=== PATIENT | female | born 1980 | race Caucasian/White ===

== ENCOUNTER 2020-11-10 09:10 | Emergency (ER) | payer BC ==
--- NOTE | 2020-11-10 09:12 | ED.PDOC ---
History of Present Illness - General Time Seen by Provider: 11/10/20 09:11 Source: patient - History of Present Illness Initial Comments: 40-year-old female with past medical history of depression, marijuana abuse who presents with chief complaint of abdominal pain and right-sided dental pain. Abdominal pain is located to the epigastric region, onset 2 days ago with gradual worsening, became at its worse early this morning and kept patient up all night, became severe several hours ago, describes as sharp without radiation, no known exacerbating factors, she has been taking ibuprofen and Tylenol with intermittent moderate relief. Currently reports pain is much better since coming to the ED. No history of similar symptoms in the past. Denies any history of abdominal surgeries. She does report that she smokes marijuana once daily. Hx of heartburn and takes Prilosec. She also complains of right-sided facial/dental pain. She underwent several dental procedures [address] Sanders. She reports she had 2 root canals and a bridge done on the right side. She had all of the work done at the same time the procedure took over 4 hours. She reports she has had constant discomfort and pain to the right upper and lower jaw, currently rates the pain 7/[address] Sanders is aware of her pain and has prescribed her clindamycin 300 mg 3 times daily which she is taking. She denies any facial swelling, warmth, redness, drainage. Denies any fevers, chills, sore throat, chest pain, dyspnea, cough, nausea/vomiting/diarrhea, urinary symptoms. 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 She has no PCP. Reports she has taken many medications for depression in the past but none worked so she quit taking all of them. Allergies/Adverse Reactions: Allergies NO KNOWN ALLERGY Allergy (Verified 11/10/20 09:41) Home Medications: Ambulatory Orders Tramadol HCl 50 mg PO Q6H PRN 5 Days #10 tab 11/10/20 Review of Systems - Review of Systems Review of Systems: 11/10/20 09:42 as per HPI All other Systems: Reviewed and Negative Family Medical History - Family History Mother Family History: No Known Physical Exam - Physical Exam General Appearance: Alert, Comfortable, No apparent distress Eye Exam: bilateral normal Ears, Nose, Throat: normal pharynx, other - Poor dentition, prior dental fillings noted to R mandibular and maxillary molars, no noted gumline redness/warmth/swelling/discharge or tenderness Neck: non-tender, full range of motion, supple, normal inspection Respiratory: lungs clear, normal breath sounds, no respiratory distress, no accessory muscle use Cardiovascular/Chest: normal peripheral pulses, regular rate, rhythm, no edema, no gallop, no JVD, no murmur Peripheral Pulses: radial,right: 2+, radial,left: 2+ Gastrointestinal/Abdominal: normal bowel sounds, non tender, soft, no organomegaly Back Exam: normal inspection, no CVA tenderness Extremity: normal range of motion, non-tender, normal inspection, no pedal edema, no calf tenderness, normal capillary refill 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 For jaw pain, suspect as likely postoperative inflammation/irritation, no evidence of infection or other complication - will treat with pain control in ED -Patient stable, no acute distress, reports abdominal pain is actually improved from earlier and has no tenderness on exam -Obtain acute abdominal work-up -Place PIV, IV fluids, GI cocktail, [place] 10, reassess 11/10/20 10:51 -Patient reports pain is markedly improved with ED treatment. She remained stable. Lab work is largely unremarkable. I did discuss that she has evidence of mild anemia and she may take [id number] iron supplements and discuss further with her PCP. Discussed all findings. I suspect that she likely has acute gastritis as cause of her abdominal discomfort. I advised that she quit smoking and using marijuana. Advised to continue her Prilosec and to increase her dosage from 20 to 40 mg once daily. Advised to follow-up closely with her PCP to establish care and also with her dentist for jaw pain. Will prescribe tramadol as needed for breakthrough pain until she can get back in with her dentist. -Discharged home in good condition, return warnings discussed Nito Carolina MD Billing #[id number] 11/10/20 09:37 Sodium Chloride 0.9% (Flush) [Saline Flush Syringe] 10 ml IV PRN PRN URINALYSIS Stat Laboratory Results - last 24 hr 11/10/20 11/10/20 11/10/20 09:45 09:45 09:45 WBC 7.2 RBC 3.82 L Hgb 11.1 L Hct 33.2 L MCV 86.9 MCH 29.2 MCHC 33.6 RDW 15.5 H Plt Count 486 H MPV 6.6 L Absolute Neuts (auto) 3.50 Absolute Lymphs (auto) 2.20 Absolute Monos (auto) 0.40 Absolute Eos (auto) 1.00 H Absolute Basos (auto) 0.00 Neutrophils % 48.3 Lymphocytes % 30.9 Monocytes % 6.2 Eosinophils % 14.2 H Basophils % 0.4 Sodium 137 Potassium 4.7 Chloride 104 Carbon Dioxide 26 Anion Gap 11.7 L BUN 9 Creatinine 0.61 BUN/Creatinine Ratio 14.8 Random Glucose 103 Serum Osmolality 272.8 L Lactic Acid 0.9 Calcium 8.5 Total Bilirubin 0.4 Direct Bilirubin < 0.1 Indirect Bilirubin 0.3 AST 16 ALT 18 Alkaline Phosphatase 88 Serum Total Protein 6.5 Albumin 3.4 Amylase 37 Lipase 25 Serum HCG, Qual 11/10/20 09:45 WBC RBC Hgb Hct MCV MCH MCHC RDW Plt Count MPV Absolute Neuts (auto) Absolute Lymphs (auto) Absolute Monos (auto) Absolute Eos (auto) Absolute Basos (auto) Neutrophils % Lymphocytes % Monocytes % Eosinophils % Basophils % Sodium Potassium Chloride Carbon Dioxide Anion Gap BUN Creatinine BUN/Creatinine Ratio Random Glucose Serum Osmolality Lactic Acid Calcium Total Bilirubin Direct Bilirubin Indirect Bilirubin AST ALT Alkaline Phosphatase Serum Total Protein Albumin Amylase Lipase Serum HCG, Qual Negative Departure - Departure Clinical Impression: Pain, dental Gastritis Qualifiers: Gastritis type: other gastritis Chronicity: acute Gastritis bleeding: without bleeding Qualified Code(s): K29.00 - Acute gastritis without bleeding Time of Disposition: 10:46 Disposition: Discharge to Home or Self Care Condition: Good Instructions: Gastritis (DC), Dental Pain (DC) Diet: resume usual diet Activity: increase activity as tolerated Prescriptions: Tramadol HCl 50 mg PO Q6H PRN 5 Days #10 tab PRN Reason: Pain Home Medications: Ambulatory Orders Tramadol HCl 50 mg PO Q6H PRN 5 Days #10 tab 11/10/20 Additional Instructions: Remain well-hydrated and gradually advance her diet and activity level as tolerated. It is advised to quit smoking cigarettes and marijuana as it may be contributing to acute symptoms and can have numerous other negative consequences to your overall health. You may continue to take [id number] medications as needed for pain such as Tylenol 650 mg every 6 hours as needed and ibuprofen 600 mg every 6-8 hours as needed. You may take the tramadol as directed for breakthrough pain but do not drive or operate heavy machinery while taking. Continue take Prilosec daily for prevention of heartburn. You may take [id number] Tums or Maalox or other antacid medications for heartburn relief as well. Return the ED if you develop worsening of symptoms or other new or concerning symptoms such as worsening abdominal pain, intractable nausea and vomiting, bloody vomiting or bloody stools, etc. It is recommended that you establish care with a primary doctor to follow-up all of your symptoms in the next 1 to 2 weeks for repeat evaluation. Follow-up with your dentist as well for continued dental/facial pain.
[2020-11-10] MEDS ORDERED: HYDROCOD/APAP 10/325 (ER DISP) # 3 tablets PO ONE (09:37)
[2020-11-10] MEDS ORDERED: ALUM & MAG HYDROX-SIMETHICONE 30 ML, LIDOCAINE VISCOUS 2% 15 ML PO ONE ×2 (09:37)
[2020-11-10] MEDS ORDERED: SODIUM CHLORIDE 0.9% (FLUSH) 10 ML SYG IV PRN (09:37)
[2020-11-10] MEDS ORDERED: SODIUM CHLORIDE 0.9% 500ML 500 ML IVS ONE (09:37)
[2020-11-10] MEDS ORDERED: HYDROcodone 10MG/APAP 325MG 1 EA TAB PO ONE (09:44)
[2020-11-10 10:49] VITALS: O2SAT 98
[2020-11-10 11:17] VITALS: BP 119/72; TEMP 97.2
== END 2020-11-10 11:17 | disposition home or self-care (01) ==
LOC: ER 09:10
DX: K29.00 Acute gastritis without bleeding (principal); K08.89 Other specified disorders of teeth and supporting structures; F12.10 Cannabis abuse, uncomplicated; R12 Heartburn; Z79.899 Other long term (current) drug therapy
CPT/HCPCS: 36415; 80048; 80076; 82150; 83605; 83690; 84703; 85025; J7040